=== PATIENT | female | born 1970 | race Caucasian/White ===

== ENCOUNTER 2018-04-09 00:32 | Inpatient (IN) | payer OTHER ==
[~2018-04-09] VITALS: Ht 167.6 cm; Wt 111.8 kg
[~2018-04-09 00:32] MED LIST: ACTOS30 MG PO; ACYCLOVIR200 MG PO; ALPRAZOLAM0.5 MG PO; ASPIR 8181 M1 PO; BACTRIM,SEPT1 TABLET PO; CIPRO500 MG PO; CLINDAMYCIN HC300 MG PO; GLUCOPHAGE XR,500 MG PO; HYDROCHLOROTHIA25 MG PO; LOPRESSOR50 MG PO; LORTAB 5-500 T1 EACH PO; METOPROLOL TART25 MG PO; MOTRIN400 MG PO; MOTRIN600 MG PO; PERCOCET 5/31 TABLET PO; PRILOSEC20.6 MG PO; PSEUDOEPHEDRINE30 MG PO; VITAMIN D400 UNI2 PO; WELCHOL625 MG PO; ZESTRIL,PRINIVI10 MG PO; ZESTRIL10 MG PO
[2018-04-09 01:20] LABS: HEMATOCRIT 35.6 % (36.0-46.0); HEMOGLOBIN 12.8 G/DL (11.9-15.5); MCH 32.4 PG (29.0-34.0); MCV 90.1 FL (83-99); PLATELET COUNT 155 K/uL (156-360); RBC DIS.WIDTH-CV 12.3 % (11.8-14.6); RBC DIS.WIDTH-SD 40.6 % (39-53); RED BLOOD COUNT 3.95 M/uL (3.80-5.20); WHITE BLOOD COUNT 10.8 K/uL (4.1-10.2)
[2018-04-09 01:29] LABS: ALBUMIN 3.7 g/dL (3.2-4.8); CHLORIDE 104 mEq/L (99-109); POTASSIUM 3.8 mEq/L (3.7-5.4); SODIUM 137 mEq/L (136-147)
[2018-04-09 01:31] LABS: GLUCOSE 337 mg/dL (70-99)
[2018-04-09 01:32] LABS: TOTAL PROTEIN 6.7 g/dL (6.4-8.3)
[2018-04-09 01:33] LABS: TOTAL BILIRUBIN 0.4 mg/dL (0.0-1.0)
[2018-04-09 01:35] LABS: ALKALINE PHOSPHATASE 54 IU/L (3-129); CREATININE 0.8 mg/dL (0.6-1.3); GFR ESTIMATE (CALCULATED) > 59 mL/min/
[2018-04-09 01:36] LABS: UREA NITROGEN (BUN) 13 mg/dL (9-23)
[2018-04-09 01:37] LABS: AST (GOT) 16 IU/L (2-34)
[2018-04-09 01:38] LABS: ALT (GPT) 29 IU/L (3-49); LIPASE 400 U/L (1.0-51.0)
[2018-04-09 01:40] LABS: TROP-I INTERPRETATION NEGATIVE; TROPONIN-I < 0.01 ng/mL (0.0-0.30)
[2018-04-09 07:32] LABS: AMYLASE 62 IU/L (1-118); CHLORIDE 106 MEQ/L (99-109); POTASSIUM 3.9 MEQ/L (3.7-5.4); SODIUM 138 MEQ/L (136-147)
[2018-04-09 07:37] LABS: CREATININE 0.5 MG/DL (0.6-1.3); GFR ESTIMATE (CALCULATED) > 59 mL/min/; GLUCOSE 222 mg/dL (70-99); HDL CHOLESTEROL 30 MG/DL (Desirable>=50); LDL CHOLESTEROL 95 mg/dL (Desirable<100); LIPASE 186 U/L (1.0-51.0); NON-HDL CHOLESTEROL 124 mg/dL (Desirable<160); TOTAL CHOLESTEROL 154 mg/dL (Desirable<200); TRIGLYCERIDES 146 MG/DL (Normal: <150); UREA NITROGEN (BUN) 13 mg/dL (9-23)
[2018-04-09] MEDS ORDERED: TYLENOL REGULA325 MG PO (08:35)
[2018-04-09] MEDS ORDERED: NAPROSYN500 MG PO (08:35)
[2018-04-09] MEDS ORDERED: LIPITOR20 MG PO (08:35)
[2018-04-09] MEDS ORDERED: ONGLYZA5 MG PO (08:35)
[2018-04-09] MEDS ORDERED: VICTOZA 2-0.6 MG/0.1 SC (08:37)
[2018-04-09] MEDS ORDERED: ALLOPURINOL300 MG PO (08:41)
[2018-04-09 10:10] VITALS: BP 198/91
[2018-04-09 11:11] VITALS: BP 172/98
[2018-04-09 15:27] VITALS: BP 180/89
[2018-04-09 19:35] VITALS: BP 138/75
[2018-04-09 23:30] VITALS: BP 162/73
[2018-04-10 04:05] VITALS: BP 138/70
[2018-04-10 06:55] LABS: AMYLASE 58 IU/L (1-118); CHLORIDE 106 MEQ/L (99-109); CREATININE 0.5 MG/DL (0.6-1.3); GFR ESTIMATE (CALCULATED) > 59 mL/min/; GLUCOSE 188 mg/dL (70-99); HDL CHOLESTEROL 27 MG/DL (Desirable>=50); LDL CHOLESTEROL 89 mg/dL (Desirable<100); LIPASE 196 U/L (1.0-51.0); NON-HDL CHOLESTEROL 127 mg/dL (Desirable<160); POTASSIUM 3.9 MEQ/L (3.7-5.4); SODIUM 140 MEQ/L (136-147); TOTAL CHOLESTEROL 154 mg/dL (Desirable<200); TRIGLYCERIDES 190 MG/DL (Normal: <150); UREA NITROGEN (BUN) 9 mg/dL (9-23)
[2018-04-10 08:48] VITALS: BP 148/78
[2018-04-10 11:52] VITALS: BP 153/86
[2018-04-10 12:16] LABS: HEMOGLOBIN A1c (GLYCOHEMOGLOB) 8.8 % (Below 5.7)
[2018-04-10 15:31] VITALS: BP 119/83
[2018-04-10 19:44] VITALS: BP 162/80
[2018-04-10 23:21] VITALS: BP 158/77
[2018-04-11 06:50] LABS: BASOPHIL (%) 0.5 % (0-1); EOSINOPHIL (%) 2.6 % (0-5); EOSINOPHIL COUNT 0.2 K/uL (0-0.3); HEMATOCRIT 35.5 % (36.0-46.0); HEMOGLOBIN 12.1 G/DL (11.9-15.5); IMMATURE GRANULOCYTE (%) 0.4 % (0.0-0.7); LYMPHOCYTE COUNT 2.2 K/uL (1.0-2.8); MCH 31.1 PG (29.0-34.0); MCHC 34.1 G/DL (30.0-36.0); MCV 91.3 FL (83-99); MONOCYTE (%) 6.9 % (3-12); MONOCYTE COUNT 0.5 K/uL (0-0.8); NEUTROPHIL (%) 61.6 % (45-76); NEUTROPHIL COUNT 4.8 K/uL (1.8-6.4); PLATELET COUNT 146 K/uL (156-360); RBC DIS.WIDTH-CV 12.7 % (11.8-14.6); RBC DIS.WIDTH-SD 42.3 % (39-53); RED BLOOD COUNT 3.89 M/uL (3.80-5.20); WHITE BLOOD COUNT 7.8 K/uL (4.1-10.2)
[2018-04-11 07:07] LABS: ALBUMIN 3.5 G/DL (3.2-4.8); ALKALINE PHOSPHATASE 52 IU/L (3-129); ALT (GPT) 24 IU/L (3-49); AST (GOT) 17 IU/L (2-34); CHLORIDE 104 MEQ/L (99-109); CREATININE 0.5 MG/DL (0.6-1.3); GFR ESTIMATE (CALCULATED) > 59 mL/min/; GLUCOSE 173 mg/dL (70-99); LIPASE 55 U/L (1.0-51.0); SODIUM 138 MEQ/L (136-147); TOTAL BILIRUBIN 0.7 MG/DL (0.0-1.0); TOTAL PROTEIN 6.1 G/DL (6.4-8.3); UREA NITROGEN (BUN) 5 mg/dL (9-23)
[2018-04-11 07:50] VITALS: BP 183/86
[2018-04-11 11:05] VITALS: BP 180/84
[2018-04-11 15:27] VITALS: BP 198/88
[2018-04-12 00:08] VITALS: BP 166/80
[2018-04-12 07:43] VITALS: BP 185/84
[2018-04-12 16:09] VITALS: BP 179/80
[2018-04-12] MEDS ORDERED: NICOTINE PATCH1 EAC2 TD (17:52)
== END 2018-04-12 18:18 | disposition home or self-care (01) | DRG 440 ==
LOC: EME 00:32 → 2EAST 05:32 → EDOF 05:32 → CANRESERV 05:34 → ENRESERV 05:34 → 2EAST 10:07
PROVIDERS: Emergency Medicine; Internal Medicine; Internal Medicine Gastroenterology
DX: K85.90 Acute pancreatitis without necrosis or infection, unspecified (principal); E11.65 Type 2 diabetes mellitus with hyperglycemia; I10 Essential (primary) hypertension; K22.70 Barrett's esophagus without dysplasia; K29.60 Other gastritis without bleeding; E66.9 Obesity, unspecified; E78.5 Hyperlipidemia, unspecified; F17.210 Nicotine dependence, cigarettes, uncomplicated; K21.9 Gastro-esophageal reflux disease without esophagitis; F10.10 Alcohol abuse, uncomplicated; Y90.9 Presence of alcohol in blood, level not specified; Z68.39 Body mass index [BMI] 39.0-39.9, adult; Z90.710 Acquired absence of both cervix and uterus; Z91.041 Radiographic dye allergy status; Z88.5 Allergy status to narcotic agent; Z90.49 Acquired absence of other specified parts of digestive tract; Z79.4 Long term (current) use of insulin; Z82.49 Family history of ischemic heart disease and other diseases of the circulatory system; Z83.3 Family history of diabetes mellitus
CPT/HCPCS: 74176; 80048; 80048 91; 80053; 80061; 82150; 82948; 83036; 83690; 84484; 85025; 85027; 88305; 88342 TC; 93005; 99281; 99285; J1815; J1885; J2270; J3010; J7030